=== PATIENT | female | born 1980 | race Two or more races ===

== ENCOUNTER 2016-06-14 21:59 | Emergency (ER) | payer MEDICAID, OTHER ==
[~2016-06-14] VITALS: Ht 157.5 cm; Wt 72.6 kg
[2016-06-14 22:51] LABS: Basophils # (auto) 0 uL; Basophils % (auto) 0.4 % (0.0-2.0); DEFINITIVE VIEW TRANSMISSION; Eosinophils # (auto) 0.1 uL; Eosinophils % (auto) 0.9 % (0.0-7.0); Hematocrit 26.9 % (36.0-46.0); Hemoglobin 8.8 g/dL (12.2-16.2); Lymphocytes # (auto) 1.3 uL; Mean Corpuscular Hemoglobin 23.5 pg (28.0-32.0); Mean Corpuscular Hgb Conc. 32.8 g/dL (32.0-36.0); Mean Corpuscular Volume 71.8 fL (80.0-100.0); Mean Platelet Volume 7.2 fL (7.4-10.4); Monocytes # (auto) 0.5 uL; Monocytes % (auto) 7.7 % (0.0-12.0); Neutrophils # (auto) 4.5 uL; Platelet Count (auto) 265 10^3/uL (140-450); Red Cell Distribution Width 17.4 % (11.6-16.0); White Blood Cell 6.4 10^3/uL (4.4-10.8)
[2016-06-14 23:10] LABS: Albumin 2.7 g/dL (3.4-5.0); Calcium 8.3 mg/dL (8.5-10.1); Potassium 3.4 mmol/L (3.5-5.1)
[2016-06-14 23:13] LABS: Bilirubin, Total 0.3 mg/dL (0.2-1.0); Total Protein 7.2 g/dL (6.4-8.2)
[2016-06-14 23:18] LABS: Urine Bilirubin Negative (Negative); Urine Blood Negative /uL (Negative); Urine Color Yellow (Yellow); Urine Glucose Normal (Normal); Urine Ketone Negative (Negative); Urine Mucus FEW (None Seen); Urine Nitrite Negative (Negative); Urine RBC 2 /hpf (0 - 4); Urine Squamous Epithelial Cell FEW /hpf (<5); Urine pH 6.5 (5.0-8.0)
[2016-06-15 04:35] VITALS: BP 103/54
== END 2016-06-15 05:14 | disposition home or self-care (01) ==
LOC: ER 22:01
DX: O99.62 Diseases of the digestive system complicating childbirth (principal); K80.20 Calculus of gallbladder without cholecystitis without obstruction; Z3A.19 19 weeks gestation of pregnancy
CPT/HCPCS: 36415; 76705; 76805; 80053; 81001; 82150; 83690; 84702; 85025

== ENCOUNTER 2016-09-25 02:37 | Observation (INO) | payer MEDICAID ==
[~2016-09-25] VITALS: Ht 157.5 cm; Wt 61.2 kg
[2016-09-25 03:35] LABS: Urine Bilirubin Negative (Negative); Urine Blood Negative /uL (Negative); Urine Color Yellow (Yellow); Urine Glucose Normal (Normal); Urine Mucus FEW (None Seen); Urine Nitrite Negative (Negative); Urine RBC <1 /hpf (0 - 4); Urine Squamous Epithelial Cell FEW /hpf (<5)
[2016-09-25 03:37] LABS: Urine Ketone 1+ (Negative)
[2016-09-25] MEDS ORDERED: TERBUTALINE SULFATE 1 MG/ML 1ML VIAL SC ONE ×2 (03:55→04:06)
[2016-09-25] MEDS ORDERED: ACETAMINOPHEN 325 MG TAB PO ONE ×2 (04:46→05:00)
== END 2016-09-25 06:12 | disposition left against medical advice (07) | DRG 566 ==
LOC: LDRP 02:37
PROVIDERS: ADMIT Obstetrics & Gynecology; ATTEND Obstetrics & Gynecology
DX: O62.9 Abnormality of forces of labor, unspecified (principal); O26.893 Other specified pregnancy related conditions, third trimester; M54.5 Low back pain; Z3A.34 34 weeks gestation of pregnancy
CPT/HCPCS: 59025; 76818; 80307; 81001; 81002; 96372; G0378; J3105

== ENCOUNTER 2016-10-05 22:55 | Observation (INO) | payer MEDICAID | END 2016-10-06 01:00 | disposition home or self-care (01) | DRG 566 | LOC: LDRP 22:55 | PROVIDERS: ADMIT Obstetrics & Gynecology; ATTEND Obstetrics & Gynecology | DX: O26.893 Other specified pregnancy related conditions, third trimester (principal); M25.551 Pain in right hip; M54.9 Dorsalgia, unspecified; M25.552 Pain in left hip; Z3A.35 35 weeks gestation of pregnancy | CPT/HCPCS: 59025; 76815; 76818; 81002; G0378 ==

== ENCOUNTER 2016-10-30 05:00 | Inpatient (IN) | payer MEDICAID ==
[2016-10-30] VITALS (9 sets, daily range): BP systolic 102–132; BP diastolic 52–88
[~2016-10-30] VITALS: Ht 157.5 cm; Wt 80.7 kg
[2016-10-30] MEDS: LACTATED RINGER'S 1,000 ML IV SCH ×3 (05:05→21:27)
[2016-10-30 05:44] LABS: Basophils # (auto) 0 uL; Basophils % (auto) 0.3 % (0.0-2.0); CONDITION Y; DEFINITIVE SEE PRINTOUT; Eosinophils # (auto) 0.1 uL; Eosinophils % (auto) 0.7 % (0.0-7.0); Hematocrit 23.6 % (36.0-46.0); Hemoglobin 7.4 g/dL (12.2-16.2); Lymphocytes % (auto) 17.5 % (10.0-50.0); Mean Corpuscular Hemoglobin 20.4 pg (28.0-32.0); Mean Corpuscular Hgb Conc. 31.4 g/dL (32.0-36.0); Mean Platelet Volume 8.4 fL (7.4-10.4); Monocytes # (auto) 0.6 uL; Monocytes % (auto) 5.1 % (0.0-12.0); Neutrophils # (auto) 8.8 uL; Neutrophils % (auto) 76.4 % (37.0-80.0); Platelet Count (auto) 290 10^3/uL (140-450); Red Cell Distribution Width 19.3 % (11.6-16.0); White Blood Cell 11.6 10^3/uL (4.4-10.8)
[2016-10-30 06:01] LABS: INR 0.94 (0.9-1.15); Prothrombin Time 10.2 sec (9.37-12.3)
[2016-10-30 06:10] LABS: Albumin 2.7 g/dL (3.4-5.0); BUN/Creatinine Ratio 20.3; Calcium 8.5 mg/dL (8.5-10.1); Potassium 3.7 mmol/L (3.5-5.1)
[2016-10-30 06:18] LABS: Bilirubin, Total 0.6 mg/dL (0.2-1.0); Total Protein 7.5 g/dL (6.4-8.2)
[2016-10-30 06:29] LABS: Urine Bilirubin Negative (Negative); Urine Blood Negative /uL (Negative); Urine Color Yellow (Yellow); Urine Glucose Normal (Normal); Urine Ketone TRACE (Negative); Urine Mucus FEW (None Seen); Urine Nitrite Negative (Negative); Urine RBC 1 /hpf (0 - 4); Urine Squamous Epithelial Cell MOD /hpf (<5); Urine pH 5.5 (5.0-8.0)
[2016-10-30] MEDS ORDERED: MIDAZOLAM HCL 1MG/1ML-2 ML VIAL ONE (10:14)
[2016-10-30] MEDS ORDERED: MORPHINE SULF(PF) 0.5MG/ML 10ML VIAL ONE (10:14)
[2016-10-30] MEDS ORDERED: OXYTOCIN 10 UNIT/ML 10ML VIAL ONE (10:53)
[2016-10-30] MEDS ORDERED: ONDANSETRON HCL 4 MG/2 ML VIAL ONE (10:53)
[2016-10-30] MEDS ORDERED: ePHEDrine SULFATE 50 MG/ML AMP ONE (10:53)
[2016-10-30] MEDS ORDERED: STERILE WATER 10 ML ONE (10:53)
[2016-10-30] MEDS ORDERED: METOCLOPRAMIDE HCL 5MG/ml INJ 2ml VIAL ONE (10:53)
[2016-10-30] MEDS ORDERED: ceFAZolin 1GM VL ONE (10:53)
[2016-10-30] MEDS ORDERED: ONDANSETRON HCL 4 MG/2 ML VIAL IV PRN (11:15)
[2016-10-30] MEDS ORDERED: HYDROmorphone HCL 2 MG/ML VL IV PRN ×2 (11:45)
[2016-10-30] MEDS ORDERED: MORPHINE SULFATE 4 MG/ML SYRG IV PRN (11:45)
[2016-10-30] MEDS ORDERED: KETOROLAC TROMETH 30 MG/ML 1ML VIAL IV PRN (11:45)
[2016-10-30] MEDS ORDERED: LACT. RINGERS/OXYTOCIN 20UNITS 1,000 ML IV SCH (11:45)
[2016-10-30] MEDS ORDERED: ONDANSETRON HCL 4 MG/2 ML VIAL IV ONE (11:45)
[2016-10-30] MEDS ORDERED: OXYTOCIN 10UNIT/ML 1ML VIAL ONE (11:48)
[2016-10-30] MEDS: ceFAZolin 1GM/50ML D5W 50 ML IV SCH ×2 (14:07→22:14)
[2016-10-30 19:44] LABS: Basophils # (auto) 0 uL; CONDITION Y; DEFINITIVE SEE PRINTOUT; Eosinophils # (auto) 0 uL; Lymphocytes # (auto) 1.1 uL; Monocytes # (auto) 0.5 uL; Red Cell Distribution Width 19.4 % (11.6-16.0); White Blood Cell 11.5 10^3/uL (4.4-10.8)
[2016-10-30 19:50] LABS: Basophils % (auto) 0.1 % (0.0-2.0); Eosinophils % (auto) 0.2 % (0.0-7.0); Lymphocytes % (auto) 9.9 % (10.0-50.0); Mean Corpuscular Hemoglobin 20.2 pg (28.0-32.0); Mean Corpuscular Hgb Conc. 31.2 g/dL (32.0-36.0); Mean Corpuscular Volume 64.8 fL (80.0-100.0); Mean Platelet Volume 8.2 fL (7.4-10.4); Monocytes % (auto) 4.4 % (0.0-12.0); Neutrophils # (auto) 9.8 uL; Neutrophils % (auto) 85.4 % (37.0-80.0); Platelet Count (auto) 249 10^3/uL (140-450)
[2016-10-30 20:00] LABS: Hemoglobin 6.9 g/dL (12.2-16.2)
[2016-10-30 20:25] LABS: Platelet Estimate Adequate
[2016-10-30 20:32] LABS: Burr Cells FEW; Ovalocytes FEW; Tear Drop Cells FEW
[2016-10-30 20:33] LABS: Anisocytosis Moderate; Hypochromia Marked; Microcytosis Marked; Polychromasia Slight
[2016-10-31] VITALS (11 sets, daily range): BP systolic 90–117; BP diastolic 49–84
[2016-10-31] MEDS: ceFAZolin 1GM/50ML D5W 50 ML IV SCH (06:08)
[2016-10-31] MEDS ORDERED: BISACODYL 10 MG RECT SUPP PR PRN (07:00)
[2016-10-31] MEDS: HYDROcodone-ACET 10/325MG TAB PO PRN ×2 (07:16→17:35)
[2016-10-31 07:51] LABS: Basophils # (auto) 0 uL; Basophils % (auto) 0.3 % (0.0-2.0); CONDITION Y; DEFINITIVE SEE PRINTOUT; Eosinophils # (auto) 0.1 uL; Eosinophils % (auto) 1.4 % (0.0-7.0); Hematocrit 21.4 % (36.0-46.0); Lymphocytes # (auto) 1.6 uL; Lymphocytes % (auto) 17.7 % (10.0-50.0); Mean Corpuscular Hemoglobin 20.5 pg (28.0-32.0); Mean Corpuscular Hgb Conc. 31.8 g/dL (32.0-36.0); Mean Corpuscular Volume 64.6 fL (80.0-100.0); Mean Platelet Volume 8.1 fL (7.4-10.4); Monocytes # (auto) 0.4 uL; Monocytes % (auto) 4.3 % (0.0-12.0); Neutrophils # (auto) 6.9 uL; Neutrophils % (auto) 76.3 % (37.0-80.0); Platelet Count (auto) 257 10^3/uL (140-450); Red Cell Distribution Width 19.4 % (11.6-16.0); White Blood Cell 9.1 10^3/uL (4.4-10.8)
[2016-10-31 07:57] LABS: Hemoglobin 6.8 g/dL (12.2-16.2)
[2016-10-31] MEDS ORDERED: TETANUS-DIPTH-ACEL PERTUSSIS 0.5ML SYRG IM ONE (10:00)
[2016-10-31] MEDS ORDERED: FERROUS SULFATE 325 MG TAB PO SCH (10:00)
[2016-10-31] MEDS: DOCUSATE SOD 100 MG CAP PO SCH ×2 (10:08→22:17)
[2016-10-31] MEDS: DOCUSATE CALCIUM 240 MG CAP PO SCH (10:08)
[2016-10-31] MEDS: FERROUS SULFATE 325 MG TAB PO SCH ×3 (10:08→22:18)
[2016-10-31 11:10] LABS: Platelet Estimate Adequate
[2016-10-31 11:11] LABS: Anisocytosis Moderate; Hypochromia Moderate; Microcytosis Moderate; Ovalocytes FEW
[2016-10-31] MEDS: IBUPROFEN 800 MG TAB PO PRN ×2 (12:05→22:19)
[2016-10-31] MEDS: SIMETHICONE 80 MG CHEWABLE TABLET PO SCH ×3 (12:13→22:18)
[2016-11-01] VITALS (23 sets, daily range): BP systolic 92–118; BP diastolic 51–72
[2016-11-01] MEDS: HYDROcodone-ACET 10/325MG TAB PO PRN (07:05)
[2016-11-01] MEDS: FERROUS SULFATE 325 MG TAB PO SCH ×3 (07:05→22:14)
[2016-11-01] MEDS: SIMETHICONE 80 MG CHEWABLE TABLET PO SCH ×4 (07:06→22:13)
[2016-11-01] MEDS ORDERED: PREN-96 PO (08:39)
[2016-11-01] MEDS ORDERED: HYDROcodone-ACET 5/325MG TAB PO PRN (09:30)
[2016-11-01] MEDS: DOCUSATE CALCIUM 240 MG CAP PO SCH (10:03)
[2016-11-01] MEDS: DOCUSATE SOD 100 MG CAP PO SCH ×2 (10:03→22:13)
[2016-11-01 10:15] LABS: Hematocrit 21.7 % (36.0-46.0)
[2016-11-01 10:23] LABS: Hemoglobin 6.8 g/dL (12.2-16.2)
[2016-11-01] MEDS: IBUPROFEN 800 MG TAB PO PRN ×2 (11:43→20:52)
[2016-11-01] MEDS: HYDROcodone-ACET 5/325MG TAB PO PRN ×2 (17:27→23:52)
[2016-11-01 18:04] LABS: Hematocrit 27.2 % (36.0-46.0); Hemoglobin 8.7 g/dL (12.2-16.2)
[2016-11-02 03:58] VITALS: BP 108/55
[2016-11-02] MEDS: IBUPROFEN 800 MG TAB PO PRN (04:53)
[2016-11-02] MEDS: FERROUS SULFATE 325 MG TAB PO SCH (05:53)
[2016-11-02] MEDS: SIMETHICONE 80 MG CHEWABLE TABLET PO SCH (05:53)
[2016-11-02] MEDS: HYDROcodone-ACET 5/325MG TAB PO PRN (05:54)
[2016-11-02 07:00] VITALS: BP 114/65
[2016-11-02] MEDS ORDERED: TETANUS-DIPTH-ACEL PERTUSSIS 0.5ML SYRG IM ONE (07:15)
[2016-11-02 07:32] LABS: Basophils # (auto) 0 uL; Basophils % (auto) 0.3 % (0.0-2.0); CONDITION Y; DEFINITIVE SEE PRINTOUT; Eosinophils # (auto) 0.2 uL; Eosinophils % (auto) 2.2 % (0.0-7.0); Hematocrit 27.3 % (36.0-46.0); Hemoglobin 8.8 g/dL (12.2-16.2); Lymphocytes # (auto) 1.6 uL; Lymphocytes % (auto) 19.7 % (10.0-50.0); Mean Corpuscular Hemoglobin 22.6 pg (28.0-32.0); Mean Corpuscular Hgb Conc. 32.3 g/dL (32.0-36.0); Mean Platelet Volume 7.8 fL (7.4-10.4); Monocytes # (auto) 0.3 uL; Monocytes % (auto) 3.6 % (0.0-12.0); Neutrophils # (auto) 6.1 uL; Neutrophils % (auto) 74.2 % (37.0-80.0); Platelet Count (auto) 287 10^3/uL (140-450); SUSPECT SEE PRINTOUT; White Blood Cell 8.2 10^3/uL (4.4-10.8)
[2016-11-02 07:33] LABS: Red Cell Distribution Width 25.1 % (11.6-16.0)
[2016-11-02 08:09] LABS: Anisocytosis Moderate; Microcytosis Marked; Platelet Estimate Adequate
[2016-11-02 08:10] LABS: Hypochromia Slight
[2016-11-02 08:11] LABS: Ovalocytes FEW
[2016-11-02] MEDS: DOCUSATE SOD 100 MG CAP PO SCH (10:00)
[2016-11-02] MEDS: DOCUSATE CALCIUM 240 MG CAP PO SCH (10:00)
== END 2016-11-02 09:55 | disposition home or self-care (01) | DRG 540 ==
LOC: LDRP 05:00
PROVIDERS: ADMIT Obstetrics & Gynecology; ATTEND Obstetrics & Gynecology
PROC: 10D00Z1 Extraction of Products of Conception, Low, Open Approach (ICD-10-PCS; principal; 2016-10-30 10:16)
PROC: 30233N1 Transfusion of Nonautologous Red Blood Cells into Peripheral Vein, Percutaneous Approach (ICD-10-PCS; 2016-11-01)
DX: O34.219 Maternal care for unspecified type scar from previous cesarean delivery (principal); Z23 Encounter for immunization; Z37.0 Single live birth; Z3A.39 39 weeks gestation of pregnancy
CPT/HCPCS: 36415; 51702; 59025; 80053; 80307; 81001; 81002; 85014; 85018; 85025; 85610; 85730; 86850; 86900; 86901; 86920; 90715; 93971; 94762; 96361; 96366; J0690; J1885; J2250; J2405; J2590

== ENCOUNTER 2017-05-01 00:56 | Emergency (ER) | payer MEDICAID ==
[~2017-05-01] VITALS: Ht 157.5 cm; Wt 72.6 kg
[~2017-05-01 00:56] MED LIST: PREN-96 PO
[2017-05-01 01:53] VITALS: BP 117/80
== END 2017-05-01 03:27 | disposition left against medical advice (07) ==
LOC: ER 00:56
DX: J02.9 Acute pharyngitis, unspecified (principal); Z53.21 Procedure and treatment not carried out due to patient leaving prior to being seen by health care provider